=== PATIENT | male | born 1995 | race African-American/Black ===

== ENCOUNTER 2019-08-09 11:16 | Emergency (ER) | payer BC ==
[~2019-08-09] VITALS: Ht 177.8 cm; Wt 83.9 kg
--- NOTE | 2019-08-09 11:52 | NUR ---
BIBFRIEND, FROM HOME, C/O ABD PAIN SINCE 2 AM, +N/V, DIARRHEA. PT AAOX4, VSS. DENIES CP, SOB, DIZZINESS, WEAKNESS @ THIS TIME. AWAITING EVAL BY ANDREY/PA. WILL CONT TO MONITOR.
[2019-08-09] MEDS ORDERED: ONDANSETRON HCL/PF 4 MG/2 ML VIAL ONE (12:09)
[2019-08-09] MEDS ORDERED: KETOROLAC TROMETHAMINE INJ 30 MG/ML VIAL ONE (12:09)
[2019-08-09 12:13] LABS: APPEARANCE,URINE Clear (CLEAR); BASOPHILS % (AUTO) 0.3 % (0.0-2.0); BILIRUBIN,URINE SMALL (NEGATIVE); BLOOD, URINE Moderate Ery/uL (NEGATIVE); COLOR,URINE Yellow (YELLOW); EOSINOPHILS % (AUTO) 0.1 % (0.0-6.0); HEMATOCRIT 46 % (39-51); HEMOGLOBIN 15.5 g/dL (13.5-17.5); KETONES,URINE 40 (NEGATIVE); LEUKOCYTE ESTERASE ,URINE Negative (NEGATIVE); LYMPHOCYTES # (AUTO) 0.3 /CMM (0.8-4.8); MEAN CORPUSCULAR HGB CONC 34 g/dl (31.0-36.0); MEAN CORPUSCULAR VOLUME 91 fL (80-96); MONOCYTES # (AUTO) 0.7 /CMM (0.1-1.30); MONOCYTES % (AUTO) 6.5 % (2.0-12.0); NEUTROPHILS # (AUTO) 9.5 /CMM (1.8-8.9); NEUTROPHILS % (AUTO) 90.1 % (43.0-81.0); NITRITE, URINE Negative (NEGATIVE); PH,URINE 5.5 (5.0-8.0); PLATELET COUNT (AUTO) 224 /CMM (150-450); PROTEIN,URINE 30 mg/dl (NEGATIVE); RED BLOOD CELL COUNT(AUTO) 5.09 MIL/uL (4.5-6.0); UGLUCOSE 500 MG/DL mg/dL (NEGATIVE); UROBILINOGEN,URINE 0.2 EU/dL (0.2); WHITE BLOOD COUNT (AUTO) 10.5 K/uL (4.3-11.0)
[2019-08-09] MEDS: ONDANSETRON HCL/PF 4 MG/2 ML VIAL IVP ONE (12:15)
[2019-08-09] MEDS: IV NS 0.9% 1,000 ML BAG IV ONE ×2 (12:15→13:36)
[2019-08-09 12:17] LABS: CALCIUM, SERUM 9.4 mg/dL (8.5-10.1); CREATININE 1.1 mg/dL (0.6-1.3); POTASSIUM 3.8 mmol/L (3.5-5.1)
[2019-08-09] MEDS: KETOROLAC TROMETHAMINE INJ 30 MG/ML VIAL IV ONE (12:17)
[2019-08-09 12:18] LABS: BACTERIA,URINE Few /HPF (None Seen); SQUAMOUS EPITHELIAL CELL,UR Few /HPF (None Seen)
--- NOTE | 2019-08-09 12:22 | NUR ---
MEDICATED PER LUL GALEAS'S ORDER. WILL CONT TO MONITOR.
[2019-08-09 12:23] LABS: ALBUMIN 4.6 g/dL (3.4-5.0); BILIRUBIN,DIRECT 0.3 mg/dL (0.0-0.2); BILIRUBIN,TOTAL 1.6 mg/dL (0.2-1.0); TOTAL PROTEIN, SERUM 8.1 g/dL (6.4-8.2)
--- NOTE | 2019-08-09 15:00 | NUR ---
Patient discharged to home in stable condition. Written and verbal after care instructions given. Patient verbalizes understanding of instruction.IV removed. Catheter intact and site benign. Pressure and 4x4 applied to site. No bleeding noted.
[2019-08-09 15:29] VITALS: BP 132/70
== END 2019-08-09 15:30 | disposition home or self-care (01) ==
LOC: ER 11:16
DX: A08.4 Viral intestinal infection, unspecified (principal); E11.9 Type 2 diabetes mellitus without complications; R19.7 Diarrhea, unspecified
CPT/HCPCS: 36415; 76705; 80048; 80076; 81001; 82962; 83690; 85025; 87086; 96361; 96374; 96375; 99284; J1885; J2405; J7030 ×2; 81000-TC